=== PATIENT | female | born 1935 | race Caucasian/White ===

== ENCOUNTER → 2017-05-21 | Outpatient (CLI) | payer OTHER, MEDICARE ==
[~2017-05-21] MED LIST: ALIGN; LEVO25TA PO
--- NOTE | 2017-05-21 12:43 | DIAGNOSTIC IMAGING REPORT ---
L EXTREMITY NONVASCULAR LIMITED CLINICAL HISTORY: D17.22 Benign lipomatous neoplasm of skin or subcutaneous tissue mass. Nodule. TECHNIQUE: Ultrasound COMPARISON STUDY: None FINDINGS: At the site of clinically palpable nodularity is a complex primarily cystic nodule measuring 3.4 x 4.2 x 3.5 cm. This primarily cystic with scattered dependent debris. There is a second immediately adjacent structure of similar characteristics measuring 3.4 x 2.0 cm. These are immediately adjacent to separate complex regions versus a single lobular nodule measuring 6 x 5 x 3.5 cm. No evidence for vascular flow. No evidence for pseudoaneurysm. IMPRESSION: Palpable nodular density appears to be a primarily cystic lobular lesion containing a moderate amount of dependent debris. This has a maximum overall dimension of 6 x 5 x 3.5 cm. Diagnostic possibility includes seroma versus old hematoma, . No evidence for pseudoaneurysm. The above report was generated using voice recognition software. It may contain grammatical, syntax or spelling errors. Electronically signed by: Alex Bernal M.D. 05/21/2017 12:41 PM Dictated Date/Time: 05/21/2017 12:38 PM
== END | disposition home or self-care (01) ==
LOC: C.ULTR 12:01
PROVIDERS: ATTEND Physician Assistant
DX: D17.22 Benign lipomatous neoplasm of skin and subcutaneous tissue of left arm (principal)

== ENCOUNTER 2017-06-06 13:09 | Emergency (ER) | payer OTHER, MEDICARE ==
[~2017-06-06] VITALS: Ht 160 cm; Wt 53.9 kg
[2017-06-06 13:25] VITALS: TEMP 36.6; Ht 160 cm; Wt 53.9 kg
[2017-06-06] MEDS ORDERED: LIDOCAINE/EPINEPHRINE 1% 20 ML VIAL INFIL ONE (14:15)
[2017-06-06] MEDS ORDERED: DIPHTHERIA/TETANUS/PERTUSSIS 0.5 ML SYR/VIAL IM. ONE (14:15)
--- NOTE | 2017-06-06 14:16 | EMERGENCY ROOM VISIT NOTE ---
History Report prepared by Donna: Mary Juares Under the Supervision of: Dr. Sammy Delcid M.D. First contact with patient: 13:29 Chief Complaint: FALL Stated Complaint: FALL - LACERATION History of Present Illness The patient is an 81 year old white female with a past medical history of hypothyroidism who presents to the ED with a cc of a sudden fall occurring an hour prior to arrival. Negative neck pain. She currently rates her discomfort as a 5/10 in severity. The patient states that she was walking up an incline ramp when she fell at home injuring her chin. She notes that she hit her chin on the pavement. The patient states that she chipped her right upper tooth. She reports left hand and wrist pain. The patient states that she is unsure of her tetanus status. She denies being on any blood thinners. Source of History: patient Onset: an hour prior to arrival Position: other (global) Symptom Intensity: 5/10 Quality: other (fall) Timing: other (sudden) Associated Symptoms: No neck pain Note: Associated Symptoms: left hand and wrist pain Review of Systems See HPI for pertinent positives and negatives. A total of ten systems were reviewed and were otherwise negative. Past Medical & Surgical Medical Problems: (1) Hypothyroidism Family History Noncontributory secondary to age Social History Smoking Status: Never Smoker Alcohol Use: occasionally Marital Status: Housing Status: lives with family Current/Historical Medications Scheduled Levothyroxine Sodium (Synthroid), 25 MCG PO DAILY Allergies Coded Allergies: Iodine (Unverified Allergy, Mild, ALLERGY TO IV CONTRAST IODINE, 04/20/13) Amoxicillin (Verified Allergy, Unknown, UNKNOWN, 05/18/17) Ciprofloxacin (Verified Allergy, Unknown, UNKNOWN, 05/18/17) Physical Exam Vital Signs Date Time Temp Pulse Resp B/P (MAP) Pulse Ox O2 Delivery O2 Flow Rate FiO2 06/06/17 16:40 76 16 106/63 98 06/06/17 14:57 74 18 132/65 97 Room Air 06/06/17 14:56 97 Room Air 06/06/17 13:25 36.6 74 18 129/94 99 Room Air Physical Exam GENERAL: Awake, alert, well-appearing, NAD HENT: Normocephalic. 1 cm laceration to the left chin. EYES: Normal conjunctiva. Sclera non-icteric. NECK: Supple. No nuchal rigidity. FROM. No midline c-spine tenderness RESPIRATORY: CTAB, no rhonchi, wheezing, crackles CARDIAC: RRR, no MRG ABDOMEN: Soft, NTND, BS+ BACK: No tenderness to palpation. MSK: No chest wall TTP, no LE edema, left 5th metacarpal tenderness to palpation , left medial ankle pain without ecchymosis, NVI to SP/DP nerves, MVI to MUR nerves. NEURO: GCS 15, CN 2-12 intact, moves all 4s on command SKIN: No rash or jaundice noted. Medical Decision & Procedures ER Provider Diagnostic Interpretation: Radiology results as stated below per my review and radiologist interpretation: MAXILLOFACIAL CT WITHOUT CONTRAST CLINICAL HISTORY: EVALUATE FOR TRAUMA/INJURY. COMPARISON STUDY: None. TECHNIQUE: A maxillofacial CT was performed without IV contrast. Coronal and sagittal reformats were viewed. A dose lowering technique was utilized adhering to the principles of ALARA. FINDINGS: There is no acute facial fracture. The globes are intact. There is no retrobulbar hematoma. Alignment of the temporomandibular joints is anatomic. The cervical spine CT will be reported separately. IMPRESSION: No acute facial fracture. Electronically signed by: Alonso Rangel M.D. 06/06/2017 3:48 PM Dictated Date/Time: 06/06/2017 3:[address] OF THE HEAD WITHOUT CONTRAST CLINICAL HISTORY: EVALUATE FOR TRAUMA/INJURY COMPARISON STUDY: Head CT April 20, 2013. CT DOSE: 1603.12 mGycm TECHNIQUE: Helical axial images of the head were obtained without IV contrast. Automated exposure control was utilized for the study. A dose lowering technique was utilized adhering to the principles of ALARA. FINDINGS: No acute intracranial hemorrhage, midline shift or mass effect is present. Ventricular system is stable. Basilar cisterns are patent. There are no extra-axial collections. White matter hypodensity suggests small vessel disease. There are no calvarial fractures. IMPRESSION: 1. No acute intracranial findings. 2. No calvarial fracture. Electronically signed by: Alonso Rangel M.D. 06/06/2017 3:45 PM Dictated Date/Time: 06/06/2017 3:43 PM L HAND MIN 3 VIEWS ROUTINE CLINICAL HISTORY: Left hand pain following fall. COMPARISON: None FINDINGS: A ring is present on the fourth finger. There are postsurgical findings consistent with fusion of the left first metacarpophalangeal joint. The trapezium may have been resected. There is no acute fracture. There is marked joint space narrowing and osteophytosis of the interphalangeal joint of the left thumb with apparent subluxation. This is likely chronic. IMPRESSION: 1. No acute fracture or dislocation of the left hand. 2. Marked joint space narrowing with sclerosis of the interphalangeal joint of the left thumb with apparent mild subluxation which is likely chronic. The findings suggest severe osteoarthritis. 3. Pronounced flexion of multiple left metacarpophalangeal joints which is likely chronic or positional. Electronically signed by: Alonso Rangel M.D. 06/06/2017 2:56 PM Dictated Date/Time: 06/06/2017 2:54 PM CHEST ONE VIEW PORTABLE CLINICAL HISTORY: Fall. COMPARISON STUDY: Chest radiograph April 13, 2009. FINDINGS: There is no pneumothorax or pleural effusion. Lungs are clear. Pulmonary vascularity is normal. Cardiomediastinal silhouette is normal. Osteoarthritis of both glenohumeral joints is incidentally noted. IMPRESSION: No acute cardiopulmonary findings. Electronically signed by: Alonso Rangel M.D. 06/06/2017 2:54 PM Dictated Date/Time: 06/06/2017 2:[address] OF THE CERVICAL SPINE WITHOUT CONTRAST CLINICAL HISTORY: EVALUATE FOR TRAUMA/INJURY. COMPARISON STUDY: Cervical spine CT April 20, 2013. TECHNIQUE: Helical axial images of the cervical spine were obtained without IV contrast. Sagittal and coronal reconstructions were viewed. A dose lowering technique was utilized adhering to the principles of ALARA. FINDINGS: Alignment of the cervical spine is anatomic. Craniocervical junction is intact. There is no acute cervical spine fracture or subluxation. Moderate multilevel degenerative disc disease and facet arthrosis is present. There is no prevertebral edema. A lucent lesion within the left aspect of T1 is unchanged since prior CT. This is benign and likely reflects a hemangioma. IMPRESSION: No acute cervical spine fracture or subluxation. Electronically signed by: Alonso Rangel M.D. 06/06/2017 3:51 PM Dictated Date/Time: 06/06/2017 3:49 PM L ANKLE MIN 3 VIEWS ROUTINE CLINICAL HISTORY: Left ankle pain following fall. COMPARISON: None FINDINGS: Alignment of left ankle is anatomic. Talar dome is intact. Osteopenia is noted as well as suspected subtalar joint fusion. There is moderate arthritis within the left midfoot. There is no acute fracture. There is mild posterior and plantar calcaneal spurring. IMPRESSION: 1. No acute fracture or dislocation of the left ankle. 2. 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 3. Status post subtalar joint fusion. Electronically signed by: Alonso Rangel M.D. 06/06/2017 2:52 PM Dictated Date/Time: 06/06/2017 2:51 PM Laboratory Results 06/06/17 14:30 Red Blood Count 4.08, Mean Corpuscular Volume 89.2, Mean Corpuscular Hemoglobin 30.4, Mean Corpuscular Hemoglobin Concent 34.1, Mean Platelet Volume 9.3, Neutrophils (%) (Auto) 61.6, Lymphocytes (%) (Auto) 25.8, Monocytes (%) (Auto) 10.3, Eosinophils (%) (Auto) 1.2, Basophils (%) (Auto) 1.0, Neutrophils # (Auto ) 4.22, Lymphocytes # (Auto) 1.77, Monocytes # (Auto) 0.71, Eosinophils # (Auto ) 0.08, Basophils # (Auto) 0.07 06/06/17 14:30 Test 06/06/17 14:30 White Blood Count 6.86 K/uL (4.8-10.8) Red Blood Count 4.08 M/uL (4.2-5.4) Hemoglobin 12.4 g/dL (12.0-16.0) Hematocrit 36.4 % (37-47) Mean Corpuscular Volume 89.2 fL (80-100) Mean Corpuscular Hemoglobin 30.4 pg (25-34) Mean Corpuscular Hemoglobin Concent 34.1 g/dl (32-36) Platelet Count 306 K/uL (130-400) Mean Platelet Volume 9.3 fL (7.4-10.4) Neutrophils (%) (Auto) 61.6 % Lymphocytes (%) (Auto) 25.8 % Monocytes (%) (Auto) 10.3 % Eosinophils (%) (Auto) 1.2 % Basophils (%) (Auto) 1.0 % Neutrophils # (Auto) 4.22 K/uL (1.4-6.5) Lymphocytes # (Auto) 1.77 K/uL (1.2-3.4) Monocytes # (Auto) 0.71 K/uL (0.11-0.59) Eosinophils # (Auto) 0.08 K/uL (0-0.5) Basophils # (Auto) 0.07 K/uL (0-0.2) RDW Standard Deviation 49.7 fL (36.4-46.3) RDW Coefficient of Variation 15.3 % (11.5-14.5) Immature Granulocyte % (Auto) 0.1 % Immature Granulocyte # (Auto) 0.01 K/uL (0.00-0.02) Prothrombin Time 10.8 SECONDS (9.0-12.0) Prothromb Time International Ratio 1.0 (0.9-1.1) Activated Partial Thromboplast Time 25.4 SECONDS (21.0-31.0) Partial Thromboplastin Ratio 1.0 Anion Gap 14.0 mmol/L (3-11) Est Creatinine Clear Calc Drug Dose 45.2 ml/min Estimated GFR () 81.5 Estimated GFR (Non- 70.3 BUN/Creatinine Ratio 27.3 (10-20) Calcium Level 8.6 mg/dl (8.5-10.1) Troponin I < 0.015 ng/ml (0-0.045) Laboratory results reviewed by me Medications Administered Medications (Trade) Dose Ordered Sig/Pat Route Start Time Stop Time Status Last Admin Dose Admin Lidocaine/ Epinephrine (Xylocaine/Epine 1% Inj) 20 ml NOW ONCE INFIL 06/06/17 14:15 06/06/17 14:16 DC 06/06/17 14:15 20 ML Diphtheria/ Pertussis/Tetanus Vacc (Adacel Inj) 0.5 ml ONCE ONCE IM. 06/06/17 14:15 06/06/17 14:16 DC 06/06/17 14:52 0.5 ML Fentanyl Citrate (Fentanyl Inj) 25 mcg NOW ONCE IV 06/06/17 14:45 06/06/17 14:46 DC 06/06/17 14:50 25 MCG Acetaminophen (Tylenol Tab) 650 mg NOW STAT PO 06/06/17 14:42 06/06/17 14:43 DC 06/06/17 14:51 650 MG Magnesium Oxide (Mag-Ox Tab) 800 mg ONE STAT PO 06/06/17 15:23 06/06/17 15:24 DC 06/06/17 15:32 800 MG Potassium Chloride (Klor-Con M10) 40 meq STK-MED ONCE .ROUTE 06/06/17 15:30 06/06/17 15:31 DC 06/06/17 15:32 40 MEQ Procedure Location: left chin Total length: 1 cm Complexity: simple Verbal consent was obtained after the risks and benefits were explained, including but not limited to bleeding, scarring, infection, pain, and bone/joint /nerve damage. At this time, the risks of the procedure are less than the risks of NOT performing the procedure. A time out was taken and the correct patient and site identified. The skin was prepped with betadine. The target area was anesthetized with 2 ml of 1% lidocaine without epinephrine. Copious irrigation was performed using normal saline. The skin was re-prepped with betadine and a sterile field set. The wound was explored for foreign bodies and none found. Examination revealed no injury to deep structures such as tendons, bone, or significant blood vessels. Debridement was not performed. The wound edges were approximated using 3, 5-0 simple interrupted nylon sutures. Hemostasis and excellent approximation was achieved. Antibacterial ointment and a sterile dressing applied. Detailed wound care instructions and signs and symptoms of infection reviewed with the patient. No complications and the patient tolerated the procedure well. ED Course 1345: The patient was evaluated in room C11B. A complete history and physical exam was performed. 1547: I reevaluated the patient and she is feeling okay. We are awaiting CT results. 1621: I performed the laceration repair at this time. See procedure note for further detail. I discussed all the exam findings with her and I discussed the treatment plan. She verbalized complete understanding and agreement. She is ready to go home. Medical Decision Differential diagnosis: Etiologies such as fracture, dislocation, intra-abdominal, pneumothorax, intrathoracic , intracranial, neurologic, as well as other traumatic pathologies were entertained. The patient is an 81 year old white female with a past medical history of hypothyroidism who presents to the ED with a cc of a sudden fall occurring an hour prior to arrival. Patient was seen and evaluated the bedside. Patient is an 81-year-old with a history of thyroidism who presents status post mechanical fall. Patient was going down a slight grade with a difference of height in the pavement and which point she fell face forward and struck her chin on the pavement. Patient denies any focal numbness tingling or weakness. She does have a little bit of pain were a small chin leg is noted. Patient does not complain of any neck pain or headache. Patient is in some mild pain in the left hand as well as left ankle. Patient did have some blood work that was completed along with plain films and CTs. Patient's plain films were negative acute for any sort of acute fracture or dislocation. Patient did have some likely chronic subluxation. Patient's blood work did show that she had some hypokalemia. Patient was repleted with magnesium oxide and potassium chloride. Patient CTs showed no acute fracture or dislocation. Patient's laceration was repaired and the patient tolerated the procedure well. She received tdap. I did discuss return precautions as well as wound care instructions with the patient and family. Suture were to be removed in 7-10 days. They were amenable to the plan of care. All cautions were answered. Patient was deemed suitable for outpatient follow-up and treatment. Patient was given strict follow-up, discharge, and return precautions. All questions were answered. Patient was deemed suitable for outpatient follow-up at this time. Patient agreed with the plan of care and was safely discharged home. Medication Reconcilliation Current Medication List: was personally reviewed by me Blood Pressure Screening Patient's blood pressure: Normal blood pressure Blood pressure disposition: Did not require urgent referral Impression Primary Impression: Fall Additional Impressions: Hypokalemia Chin laceration Hand pain, left Ankle pain, left Scribe Attestation The scribe's documentation has been prepared under my direction and personally reviewed by me in its entirety. I confirm that the note above accurately reflects all work, treatment, procedures, and medical decision making performed by me. Departure Information Dispostion Home / Self-Care Referrals Duc Burton M.D. (PCP) Forms HOME CARE DOCUMENTATION FORM, IMPORTANT VISIT INFORMATION Patient Instructions ED Laceration All, ED Wound Care, Hypokalemia Cole, Elisabeth [facility] Additional Instructions Please return to the emergency department if you have worsening or recurrent symptoms not amenable to at-home treatment. Please call for a follow-up appointment with her primary care physician. Please take your medications as prescribed. If you have other concerns and/or complaints please feel free to also call your primary care physician's office or return the ED for further evaluation, management, and treatment. You may take 200 mg Ibuprofen every 6 hours as needed for pain with food for no more than 2 consecutive days. You may take tylenol 650 mg every 6 hours as needed for pain. You may take motrin and tylenol separately or at the same time. Take your medications as prescribed. Consider applying ice packs to face, using Motrin and Tylenol, and a soft diet. Also apply small amount of antibiotic ointment to wound. Apply a bandage covering overtop. This daily. Gentle soap and water is appropriate washing the area however no soaks in a swimming. If the area develops a lot of redness, swelling or foul smelling or yellowish or greenish drainage return to the emergency department or with her primary care physician. You have been examined and treated today on an emergency basis only. This is not a substitute for, or an effort to provide, complete comprehensive medical care. It is impossible to recognize and treat all injuries or illnesses in a single emergency department visit. It is therefore important that you follow up closely with [facility], your PCP, and/or your specialist(s). Call as soon as possible for an appointment. Thank you for your time and consideration. I look forward to speaking with you again soon. Please don't hesitate to call us if you have any questions. Problem Qualifiers Primary Impression: Fall Encounter type: initial encounter Qualified Codes: W19.XXXA - Unspecified fall, initial encounter Additional Impressions: Chin laceration Encounter type: initial encounter Qualified Codes: S01.81XA - Laceration without foreign body of other part of head, initial encounter Ankle pain, left Chronicity: acute Qualified Codes: M25.572 - Pain in left ankle and joints of left foot
[2017-06-06 14:42] LABS: BASO ABS # 0.07 K/uL (0-0.2); COMPLETE YES; EOS % 1.2 %; HEMATOCRIT 36.4 % (37-47); IG% 0.1 %; LYMPH % 25.8 %; LYMPH ABS # 1.77 K/uL (1.2-3.4); MEAN CELL VOLUME 89.2 fL (80-100); MEAN CORPUSCULAR HEMOGLOBIN 30.4 pg (25-34); MEAN CORPUSCULAR HGB CONC 34.1 g/dl (32-36); MEAN PLATELET VOLUME 9.3 fL (7.4-10.4); MONO % 10.3 %; NEUT % 61.6 %; PLATELET COUNT 306 K/uL (130-400); RED BLOOD COUNT 4.08 M/uL (4.2-5.4); WHITE BLOOD COUNT 6.86 K/uL (4.8-10.8)
[2017-06-06] MEDS ORDERED: ACETAMINOPHEN 325 MG TAB PO STA (14:42)
[2017-06-06] MEDS ORDERED: FENTANYL CITRATE INJ 50 MCG/1 ML 2 ML VIAL IV ONE (14:45)
[2017-06-06 14:50] LABS: PROTHROMBIN TIME (PATIENT) 10.8 SECONDS (9.0-12.0)
--- NOTE | 2017-06-06 14:54 | DIAGNOSTIC IMAGING REPORT ---
L ANKLE MIN 3 VIEWS ROUTINE CLINICAL HISTORY: Left ankle pain following fall. COMPARISON: None FINDINGS: Alignment of left ankle is anatomic. Talar dome is intact. Osteopenia is noted as well as suspected subtalar joint fusion. There is moderate arthritis within the left midfoot. There is no acute fracture. There is mild posterior and plantar calcaneal spurring. IMPRESSION: 1. No acute fracture or dislocation of the left ankle. 2. 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 3. Status post subtalar joint fusion. Electronically signed by: Alonso Rangel M.D. 06/06/2017 2:52 PM Dictated Date/Time: 06/06/2017 2:51 PM
--- NOTE | 2017-06-06 14:55 | DIAGNOSTIC IMAGING REPORT ---
CHEST ONE VIEW PORTABLE CLINICAL HISTORY: Fall. COMPARISON STUDY: Chest radiograph April 13, 2009. FINDINGS: There is no pneumothorax or pleural effusion. Lungs are clear. Pulmonary vascularity is normal. Cardiomediastinal silhouette is normal. Osteoarthritis of both glenohumeral joints is incidentally noted. IMPRESSION: No acute cardiopulmonary findings. Electronically signed by: Alonso Rangel M.D. 06/06/2017 2:54 PM Dictated Date/Time: 06/06/2017 2:53 PM
[2017-06-06 14:56] VITALS: O2SAT 97
[2017-06-06 14:58] LABS: BLOOD UREA NITROGEN 21 mg/dl (7-18); BUN/CREATININE RATIO 27.3 (10-20); CALCIUM 8.6 mg/dl (8.5-10.1); CARBON DIOXIDE 22 mmol/L (21-32); CHLORIDE 105 mmol/L (98-107); CREATININE 0.78 mg/dl (0.60-1.20); GLUCOSE 82 mg/dl (70-99); POTASSIUM 2.8 mmol/L (3.5-5.1); SODIUM 141 mmol/L (136-145)
--- NOTE | 2017-06-06 14:58 | DIAGNOSTIC IMAGING REPORT ---
L HAND MIN 3 VIEWS ROUTINE CLINICAL HISTORY: Left hand pain following fall. COMPARISON: None FINDINGS: A ring is present on the fourth finger. There are postsurgical findings consistent with fusion of the left first metacarpophalangeal joint. The trapezium may have been resected. There is no acute fracture. There is marked joint space narrowing and osteophytosis of the interphalangeal joint of the left thumb with apparent subluxation. This is likely chronic. IMPRESSION: 1. No acute fracture or dislocation of the left hand. 2. Marked joint space narrowing with sclerosis of the interphalangeal joint of the left thumb with apparent mild subluxation which is likely chronic. The findings suggest severe osteoarthritis. 3. Pronounced flexion of multiple left metacarpophalangeal joints which is likely chronic or positional. Electronically signed by: Alonso Rangel M.D. 06/06/2017 2:56 PM Dictated Date/Time: 06/06/2017 2:54 PM
[2017-06-06] MEDS ORDERED: MAGNESIUM OXIDE 400 MG TAB PO STA (15:23)
[2017-06-06] MEDS ORDERED: POTASSIUM CHLORIDE 20 MEQ TABCR PO STA (15:23)
[2017-06-06] MEDS ORDERED: POTASSIUM CHLORIDE 10 MEQ TABCR ONE (15:30)
--- NOTE | 2017-06-06 15:47 | DIAGNOSTIC IMAGING REPORT ---
CT OF THE HEAD WITHOUT CONTRAST CLINICAL HISTORY: EVALUATE FOR TRAUMA/INJURY COMPARISON STUDY: Head CT April 20, 2013. CT DOSE: 1603.12 mGycm TECHNIQUE: Helical axial images of the head were obtained without IV contrast. Automated exposure control was utilized for the study. A dose lowering technique was utilized adhering to the principles of ALARA. FINDINGS: No acute intracranial hemorrhage, midline shift or mass effect is present. Ventricular system is stable. Basilar cisterns are patent. There are no extra-axial collections. White matter hypodensity suggests small vessel disease. There are no calvarial fractures. IMPRESSION: 1. No acute intracranial findings. 2. No calvarial fracture. Electronically signed by: Alonso Rangel M.D. 06/06/2017 3:45 PM Dictated Date/Time: 06/06/2017 3:43 PM
--- NOTE | 2017-06-06 15:50 | DIAGNOSTIC IMAGING REPORT ---
MAXILLOFACIAL CT WITHOUT CONTRAST CLINICAL HISTORY: EVALUATE FOR TRAUMA/INJURY. COMPARISON STUDY: None. TECHNIQUE: A maxillofacial CT was performed without IV contrast. Coronal and sagittal reformats were viewed. A dose lowering technique was utilized adhering to the principles of ALARA. FINDINGS: There is no acute facial fracture. The globes are intact. There is no retrobulbar hematoma. Alignment of the temporomandibular joints is anatomic. The cervical spine CT will be reported separately. IMPRESSION: No acute facial fracture. Electronically signed by: Alonso Rangel M.D. 06/06/2017 3:48 PM Dictated Date/Time: 06/06/2017 3:46 PM
--- NOTE | 2017-06-06 15:52 | DIAGNOSTIC IMAGING REPORT ---
CT OF THE CERVICAL SPINE WITHOUT CONTRAST CLINICAL HISTORY: EVALUATE FOR TRAUMA/INJURY. COMPARISON STUDY: Cervical spine CT April 20, 2013. TECHNIQUE: Helical axial images of the cervical spine were obtained without IV contrast. Sagittal and coronal reconstructions were viewed. A dose lowering technique was utilized adhering to the principles of ALARA. FINDINGS: Alignment of the cervical spine is anatomic. Craniocervical junction is intact. There is no acute cervical spine fracture or subluxation. Moderate multilevel degenerative disc disease and facet arthrosis is present. There is no prevertebral edema. A lucent lesion within the left aspect of T1 is unchanged since prior CT. This is benign and likely reflects a hemangioma. IMPRESSION: No acute cervical spine fracture or subluxation. Electronically signed by: Alonso Rnagel M.D. 06/06/2017 3:51 PM Dictated Date/Time: 06/06/2017 3:49 PM
[2017-06-06 16:40] VITALS: BP 106/63; PULSE 76; O2SAT 98
== END 2017-06-06 16:41 | disposition home or self-care (01) ==
LOC: EDBD 13:09 → C.EDC 13:10
DX: S01.81XA Laceration without foreign body of other part of head, initial encounter (principal); W10.2XXA Fall (on)(from) incline, initial encounter; Y92.009 Unspecified place in unspecified non-institutional (private) residence as the place of occurrence of the external cause; M79.642 Pain in left hand; M25.572 Pain in left ankle and joints of left foot; E87.6 Hypokalemia; S02.5XXA Fracture of tooth (traumatic), initial encounter for closed fracture; E03.9 Hypothyroidism, unspecified; R40.2412 Glasgow coma scale score 13-15, at arrival to emergency department

== ENCOUNTER → 2017-11-13 | Outpatient (CLI) | payer OTHER, MEDICARE ==
[~2017-11-13] MED LIST changes: -ALIGN
--- NOTE | 2017-11-13 12:46 | DIAGNOSTIC IMAGING REPORT ---
MRI OF THE LEFT ELBOW WITHOUT CONTRAST CLINICAL HISTORY: Left elbow painful mass and swelling. No recent trauma. COMPARISON STUDY: Left upper extremity ultrasound May 21, 2017. TECHNIQUE: Utilizing a 1.5 Sarika magnet and dedicated coil, multiplanar, multiecho imaging of the left elbow was performed without intravenous or intra-articular contrast. FINDINGS: Alignment of left elbow is anatomic. Note is made of a very large complex left elbow joint effusion which contains extensive joint bodies with suspected synovial proliferation. This corresponds to the large collection shown on exam of May 21, 2017. A marker was placed on the skin at site of palpable abnormality overlying the posterior aspect of the left elbow. There is a corresponding 2.4 x 1.4 cm multiloculated cystic abnormality which could reflect a ganglion cyst or extension of the joint space. The complex joint effusion extends into the flexor and extensors. These are likely partially torn. There is a tear of the ulnar collateral ligament which is chronic. Radiocapitellar articulation is preserved. There is severe arthritis with chondrosis and bone loss involving the ulnotrochlear articulation. This is chronic. There is no evidence for osteomyelitis. There is no suspicious marrow replacement. No solid masses are identified on this unenhanced exam. Distal triceps is intact. The distal biceps and brachialis are intact. IMPRESSION: 1. Very large complex left elbow joint effusion which contains innumerable joint bodies with synovial proliferation. Lipoma arborescens is within the differential but considered less likely. 2. Severe osteoarthritis of the ulnotrochlear articulation. 3. No evidence for osteomyelitis. 4. No solid mass identified. 2.4 x 1.4 cm multiloculated cystic abnormality along the posteromedial aspect the left elbow likely reflects the palpable abnormality. This could reflect a ganglion cyst or extension of joint fluid. Electronically signed by: Alonso Rangel M.D. 11/13/2017 12:45 PM Dictated Date/Time: 11/13/2017 12:31 PM
== END | disposition home or self-care (01) ==
LOC: C.MRIBC 11:25
PROVIDERS: ATTEND Orthopaedic Surgery
DX: M25.522 Pain in left elbow (principal); R22.32 Localized swelling, mass and lump, left upper limb

== ENCOUNTER 2018-02-08 10:54 | Emergency (ER) | payer OTHER, MEDICARE ==
[~2018-02-08] VITALS: Ht 162.6 cm; Wt 50.4 kg
[2018-02-08 11:08] VITALS: TEMP 36.7; Ht 162.6 cm; Wt 50.4 kg
--- NOTE | 2018-02-08 13:13 | DIAGNOSTIC IMAGING REPORT ---
ULTRASOUND BILATERAL LOWER EXTREMITY VENOUS CLINICAL HISTORY: Lower extremity edema and wound. COMPARISON STUDY: No priors. TECHNIQUE: Real-time, grayscale, and color Doppler sonography of the deep veins of the right and left lower extremity was performed from the inguinal crease to the calf. Compression and augmentation were utilized. FINDINGS: There is no sonographic evidence of deep venous thrombosis identified in the right or left lower extremity. The common femoral, superficial femoral, and popliteal veins are patent and normally compressible bilaterally. The greater saphenous vein and the profunda femoris vein at the junction with the common femoral vein are clear in both legs. The visualized calf veins are patent bilaterally. A prominent lymph node is noted in the left popliteal fossa. IMPRESSION: There is no sonographic evidence of deep venous thrombosis identified in the right or left lower extremity. Electronically signed by: Jasiel Euceda M.D. 02/08/2018 1:11 PM Dictated Date/Time: 02/08/2018 1:05 PM
--- NOTE | 2018-02-08 13:20 | EMERGENCY ROOM VISIT NOTE ---
ED Visit Note First contact with patient: 11:23 Staff note: I have reviewed the Patients chart and have discussed this case with my PA. I generally agree with the ED note and findings.
[2018-02-08] MEDS ORDERED: BACITRACIN OINT 15 GM TUBE EXT ONE (14:15)
[2018-02-08 14:21] VITALS: BP 104/58; PULSE 72; O2SAT 96
--- NOTE | 2018-02-08 17:05 | EMERGENCY ROOM VISIT NOTE ---
History First contact with patient: 11:23 Chief Complaint: SWELLING TO EXTREMITY Stated Complaint: SWOLLEN LEG AND FOOT, SORE THAT WON'T HEAL History of Present Illness The patient is a 82 year old female who presents to the Emergency Room with complaints of 2 wounds on the left lower extremity. The patient reports that she suffered a laceration to the left leg in late December. Her PCP saw her for possible infection, and give her prescription for doxycycline. The patient reports that the antibiotic because abdominal discomfort and diarrhea. She stopped the antibiotic, and was prescribed mupirocin cream. The patient reports that she has had persistent redness of the leg that has not improved or worsened. She also reports bilateral lower extremity swelling. She denies any pain. The patient denies any prior history of leg wounds. She denies history of CHF or recent chest pain, shortness of breath or abdominal pain. Review of Systems 10 system review was performed and was negative except for pertinent positives and negatives as indicated in history of present illness Past Medical/Surgical History Medical Problems: (1) Hypothyroidism Family History Unremarkable Social History Smoking Status: Never Smoker Alcohol Use: occasionally Marital Status: Housing Status: lives with family Current/Historical Medications Scheduled Levothyroxine Sodium (Synthroid), 25 MCG PO DAILY Physical Exam Vital Signs Date Time Temp Pulse Resp B/P (MAP) Pulse Ox O2 Delivery O2 Flow Rate FiO2 02/08/18 14:21 72 16 104/58 96 02/08/18 13:11 67 16 101/69 98 Room Air 02/08/18 11:08 36.7 75 18 110/73 95 Room Air Physical Exam CONSTITUTIONAL: Healthy and well nourished. Alert and oriented X 3 with positive affect. Patient does not appear in any acute distress. HEENT: Normocephalic, atraumatic. Pupils equal, round and reactive. NECK: Full active range of motion without discomfort. RESPIRATORY: Clear to auscultation bilaterally with no wheezing, crackles, rhonchi or stridor. CARDIOVASCULAR: Regular rate and rhythm with no murmurs, rubs or gallops. GASTROINTESTINAL: Bowel sounds present in all quadrants. Soft and nontender to palpation. MUSCULOSKELETAL: Examination shows bilateral lower extremity dependent edema. She has open wounds to the medial and lateral aspect of the left leg. She has overriding erythema without any significant increase in warmth to palpation. She also has skin changes of bilateral lower extremities. Pedal pulses are intact. No popliteal masses. INTEGUMENTARY: No rash or other significant dermatologic conditions noted. NEUROLOGIC: Bilateral lower extremities are sensory intact. Medical Decision & Procedures ER Provider Diagnostic Interpretation: Venous ultrasound of bilateral lower extremities is negative for deep vein thrombosis. Radiologist reports are as follows: ULTRASOUND BILATERAL LOWER EXTREMITY VENOUS CLINICAL HISTORY: Lower extremity edema and wound. COMPARISON STUDY: No priors. TECHNIQUE: Real-time, grayscale, and color Doppler sonography of the deep veins of the right and left lower extremity was performed from the inguinal crease to the calf. Compression and augmentation were utilized. FINDINGS: There is no sonographic evidence of deep venous thrombosis identified in the right or left lower extremity. The common femoral, superficial femoral, and popliteal veins are patent and normally compressible bilaterally. The greater saphenous vein and the profunda femoris vein at the junction with the common femoral vein are clear in both legs. The visualized calf veins are patent bilaterally. A prominent lymph node is noted in the left popliteal fossa. IMPRESSION: There is no sonographic evidence of deep venous thrombosis identified in the right or left lower extremity. Medications Administered Medications (Trade) Dose Ordered Sig/Pat Route Start Time Stop Time Status Last Admin Dose Admin Bacitracin (Bacitracin Oint) 1 appln NOW ONCE EXT 02/08/18 14:15 02/08/18 14:16 DC 02/08/18 14:15 1 APPLN ED Course Patient history and physical exam were performed. Nurse's notes were reviewed. Vital signs were reviewed and were normal. Venous ultrasound of bilateral lower extremities were negative for deep vein thrombosis. I did recommend consultation and further management by the [facility]. [facility] [employer] also spoke with the patient. I completed forms for this referral. The patient was advised that if she does not hear anything from their office within the next 2 business days, she should call the office for an appointment. She was encouraged to elevate the legs above the heart for swelling. She was instructed to return to the emergency department for any progressively worsening redness, swelling or pain. The wounds were cleansed and covered with bacitracin dressings. The patient was happy with plan of care, voiced understanding of all discharge instructions, and denied any pain at the time of discharge. The patient was also evaluated by Dr. Stinson, ED attending physician, who agrees with workup and plan of care. Medical Decision Patient presents to emergency department with complaint of bilateral lower extremity swelling, as well as a wounds to the left lower extremity. The patient did have a preceding laceration with possible infection, although she denies any worsening redness of the left lower extremity. I suspect venous stasis ulcers. The patient has good palpable pedal pulses, therefore I do not suspect peripheral vascular disease. I do not feel that x-rays are warranted at this time. Medication Reconcilliation Current Medication List: was personally reviewed by me Blood Pressure Screening Patient's blood pressure: Normal blood pressure Impression Primary Impression: Venous stasis ulcers Departure Information Referrals Duc Burton M.D. (PCP) Patient Instructions My [facility] Problem Qualifiers Primary Impression: Venous stasis ulcers Venous stasis ulcer site: other part of lower leg Varicose vein presence: without varicose veins Laterality: left Non-pressure ulcer stage: with fat layer exposed Qualified Codes: I87.2 - Venous insufficiency (chronic) ( peripheral); L97.822 - Non-pressure chronic ulcer of other part of left lower leg with fat layer exposed
== END 2018-02-08 14:23 | disposition home or self-care (01) ==
LOC: C.EDB 10:55 → C.EDD 14:23
DX: S81.802A Unspecified open wound, left lower leg, initial encounter (principal); X58.XXXA Exposure to other specified factors, initial encounter; R60.0 Localized edema; E03.9 Hypothyroidism, unspecified; I87.2 Venous insufficiency (chronic) (peripheral)

== ENCOUNTER 2018-07-18 16:43 | Inpatient (IN) ==
[2018-07-18] MEDS ORDERED: SODIUM CHLORIDE 0.9% 1000ML 1,000 ML IV STA (17:11)
[2018-07-18] MEDS ORDERED: MoRPHine SULFATE 2 MG/ML CARP IV STA ×2 (17:12→19:12)
[2018-07-18] MEDS ORDERED: ONDANSETRON INJ 2 MG/ML 2 ML VIAL IV STA (17:12)
[2018-07-18 17:48] LABS: Basophils # (auto) 0.06 K/uL (0-0.2); Basophils % (auto) 0.8 %; Eosinophils # (auto) 0.08 K/uL (0-0.5); Hematocrit (blood only) 37.4 % (37-47); Hemoglobin 12.7 g/dL (12.0-16.0); Immature Granulocytes # (auto) 0.01 K/uL (0.00-0.02); Immature Granulocytes % (auto) 0.1 %; Lymphocytes # (auto) 2.69 K/uL (1.2-3.4); Lymphocytes % (auto) 33.7 %; Mean Platelet Volume 9.3 fL (7.4-10.4); Monocytes # (auto) 0.73 K/uL (0.11-0.59); Monocytes % (auto) 9.1 %; Neutrophils # (auto) 4.41 K/uL (1.4-6.5); Neutrophils % (auto) 55.3 %; Platelet Count 348 K/uL (130-400); RDW Coefficient of Variation 16.5 % (11.5-14.5); RDW Standard Deviation 52.1 fL (36.4-46.3); White Blood Count 7.98 K/uL (4.8-10.8)
[2018-07-18 18:23] LABS: Alanine Aminotransferase 14 U/L (12-78); Albumin Globulin Ratio 0.8 (0.9-2); Albumin Level 3.4 gm/dl (3.4-5.0); Alkaline Phosphatase 76 U/L (45-117); Aspartate Aminotransferase 12 U/L (15-37); BUN Creatinine Ratio 19.1 (10-20); Bilirubin,Total 0.5 mg/dl (0.2-1); Blood Urea Nitrogen 19 mg/dl (7-18); Calcium 8.5 mg/dl (8.5-10.1); Carbon Dioxide 25 mmol/L (21-32); Chloride 106 mmol/L (98-107); Creatinine Clr Calc Pharmacy 33.2 ml/min; Est GFR (African American) 59.9; Est GFR (Non-African American) 51.7; Globulin 4.3 gm/dl (2.5-4.0); Glucose 88 mg/dl (70-99); Potassium 2.5 mmol/L (3.5-5.1); Sodium 140 mmol/L (136-145); Total Protein 7.7 gm/dl (6.4-8.2); Troponin I < 0.015 ng/ml (0-0.045)
--- NOTE | 2018-07-18 18:30 | CT Scan Report ---
CT SCAN OF THE ABDOMEN AND PELVIS WITHOUT IV CONTRAST CLINICAL HISTORY: Lower abdominal pain. COMPARISON STUDY: No priors. TECHNIQUE: CT scan of the abdomen and pelvis is performed from the lung bases to the proximal femora. Images are reviewed in the axial, sagittal, and coronal planes. IV contrast was not administered for this examination as per the referring clinician. A dose lowering technique was utilized adhering to the principles of ALARA. CT DOSE: 251.98 mGy.cm FINDINGS: Lung bases: The heart is top normal in size and without pericardial effusion. The lung bases are milton r. Liver: The unenhanced liver is normal in size, contour, and attenuation. There is no intrahepatic jacquie iary ductal dilatation. Scattered hepatic cysts measure up to 2.2 cm. Additional subcentimeter hypode nsities also likely represent cysts but are too small for definitive characterization. Gallbladder: Unremarkable. Spleen: Normal in size and attenuation. Pancreas: The unenhanced pancreas is moderately atrophic and grossly unremarkable. Adrenal glands: Unremarkable. Kidneys: The unenhanced kidneys are atrophic. There is a 6 mm obstructing calculus protruding from th e left vesicoureteral junction seen on image #[id number]. This causes mild to moderate left-sided hydrourete ronephrosis. An additional 2 mm nonobstructing calculus is seen in the left upper pole. No right alfonso l calculi are identified and there is no right-sided hydronephrosis. There is no evidence of contour deforming renal mass lesion. Abdominal vasculature: The abdominal aorta is normal in course and caliber noting mild to moderate at herosclerotic calcification. Bowel: There is mild to moderate colonic diverticulosis without CT evidence of acute diverticulitis. No bowel obstruction is seen. The appendix is not clearly visualized. Peritoneum: There is no intraperitoneal free air or abdominal ascites. There is a small fat-containin g umbilical hernia. Lymphadenopathy: None. Pelvic viscera: The bladder is decompressed and grossly unremarkable. The uterus is normal as visuali zed. A 4.1. Centimeters simple appearing cystic structure in the right adnexa is likely related to th e right ovary. Skeletal structures: The skeletal structures are osteopenic. Moderate lumbosacral spondylosis is obse rved. No lytic or blastic lesions are seen. Advanced arthritic change is seen in the hips, left great er than right. IMPRESSION: 1. There is a 6 mm obstructing calculus protruding from the left vesicoureteral junction. This causes mild to moderate left-sided hydroureteronephrosis. 2. There is an additional small nonobstructing left renal calculus. 3. Mild to moderate colonic diverticulosis without CT evidence of acute diverticulitis. 4. There is an indeterminant cystic structure in the right adnexa, likely related to the right ovary. Follow-up with a nonemergent pelvic ultrasound and gynecologic assessment is recommended. 5. Additional findings as above. Electronically signed by: Jasiel Euceda M.D. 07/18/2018 6:29 PM
[2018-07-18] MEDS ORDERED: POTASSIUM CHLORIDE / WTR 10 MEQ/100 ML PLCT IV ONE (18:37)
--- NOTE | 2018-07-18 18:51 | History & Physical Report ---
Date of Service July 18, 2018 Assessment & Plan (1) Kidney stone: IVF flomax Pain control Urology c/s pending (2) Hypothyroid: continue home meds (3) Hypokalemia: Replaced in the ED, monitor (4) DVT prophylaxis: SCDs given possible need for OR Pt requested I call her daughter. JEANIE that stated Melita Nguyen in message. History of Present Illness Primary Care Provider: Duc Burton MD 82 y/o F c/o abd pain. Pt states that this started yesterday and has gotten worse. She was visiting her at [place] [place] today and as she was driving by the pain was so intense that she decided to stop to be seen in the ED. Pain is lower abd/pelvis and central. No back pain. She has been nauseated but no emesis. Pt denies fever, SOB, chest pain, LE pain or swelling. Pt states that she has had ongoing diarrhea that at times she cannot control, but that this is her baseline. Allergies Allergy/AdvReac Type Severity Reaction Status Date / Time iodine Allergy Mild ALLERGY TO Verified 07/18/18 17:34 IV CONTRAST IODINE amoxicillin Allergy Unknown CAN'T Verified 07/18/18 17:34 REMEMBER celecoxib Allergy Unknown CAN'T Verified 07/18/18 17:34 REMEMBER Cipro Allergy Unknown UNKNOWN Verified 02/08/18 11:43 ciprofloxacin Allergy Unknown CAN'T Verified 07/18/18 17:34 REMEMBER hydrocodone Allergy Unknown CAN'T Verified 07/18/18 17:34 REMEMBER Iodinated Contrast- Oral and Allergy Unknown CAN'T Verified 07/18/18 17:34 IV Dye REMEMBER Sulfa (Sulfonamide Allergy Unknown CAN'T Verified 07/18/18 17:34 Antibiotics) REMEMBER Home Medications Home Medications Medication Instructions Recorded Confirmed Type levothyroxine 25 mcg tablet 37.5 mcg PO DAILY 03/12/18 07/18/18 History Past Med/Surg History Medical History Hypothyroidism (Chronic) Left leg cellulitis (Chronic) Venous stasis ulcers of both lower extremities (Chronic) Social History marital status: Current Living Situation: Alone current occupational status: retired Feels Safe at Home: Yes Smoking Status: Never smoker Hx Alcohol Use: Yes (daily small glass of port wine most days) Hx Substance Use: No Beliefs That Will Affect Care: None Preferred Language: Fijian well-balanced diet: daily or most days Review of Systems Pertinent positives and negatives reviewed in HPI--all others negative Physical Exam 2 Vital Signs (Past 24 Hours): Last Vital Signs Temp 36.4 C L 07/18/18 16:46 Pulse 70 07/18/18 18:25 Resp 20 07/18/18 18:25 BP 130/80 07/18/18 18:25 Pulse Ox 100 07/18/18 18:25 Constitutional: WD/WN, vitals as above Eyes: normal visual chang by confrontation and + anicteric sclerae Neck: normal visual inspection and trachea midline Respiratory: normal respiratory effort, lungs clear to auscultation Cardiovascular: Rate/Rhythm: regular rate and regular rhythm Gastrointestinal (Abdomen): Inspection/Auscultation: + abdomen distended Percussion/Palpation: + abdomen tender (lower abd/pelvis) and abdomen soft Musculoskeletal: Head/Neck/Chest: normocephalic and head atraumatic negative for edema, peripheral pulses intact Skin: no rashes, warm and dry Neurologic: awake; not confused Speech / Cognition: normal speech Psychiatric: A+Ox3, euthymic affect Results & Data Diagnostic Findings CT AP: L sided 6mm obstructing stone, R ovarian cyst Code Status & VTE Plan Code Status Full code VTE Prophylaxis Plan VTE Prophylaxis will be ordered: Yes
[2018-07-18 19:36] LABS: Appearance Urine Cloudy (Clear); Bacteria Urine Automated Negative (Negative); Bilirubin Urine Negative (Negative); Color Urine Yellow; Epithelial Cell Urine Auto >30 /lpf (0-5); Glucose Urine UA Negative (Negative); Ketones Urine 1+ (Negative); Leukocyte Esterase Urine 1+ (Negative); Nitrite Urine Negative (Negative); Protein Urine 1+ (Negative); Specific Gravity Urine 1.023 (1.000-1.030); Urobilinogen Urine Negative (Negative); pH Urine 5.5 (4.5-7.5)
[2018-07-18] MEDS ORDERED: TAMSULOSIN HCL 0.4 MG CAP PO ONE (19:48)
[2018-07-18] MEDS ORDERED: ACETAMINOPHEN 325 MG TAB PO PRN (19:48)
[2018-07-18] MEDS ORDERED: MAGNESIUM HYDROXIDE SUSP 30 ML UDC PO PRN (19:48)
[2018-07-18] MEDS ORDERED: ONDANSETRON INJ 2 MG/ML 2 ML VIAL IV PRN (19:48)
[2018-07-18] MEDS: MoRPHine SULFATE 2 MG/ML CARP IV SCH ×3 (19:53→23:24)
[2018-07-18 20:02] LABS: Calcium Oxalate Crystals Urine Present (None Prsent)
[2018-07-18] MEDS ORDERED: INFLUENZA VACCINE HIGH DOSE 65+ 0.5 ML SYR IM ONE (21:30)
[2018-07-18] MEDS ORDERED: INFLUENZA ADMINISTRATION CHARGE ONE (21:30)
[2018-07-18] MEDS: D5W AND 1/2NSS + 20MEQ KCL 20 MEQ/1,000 ML BAG IV SCH (21:35)
[2018-07-18] MEDS: TAMSULOSIN HCL 0.4 MG CAP PO SCH (21:36)
--- NOTE | 2018-07-18 22:13 | Emergency Department Note ---
Entered by Oscar Nielsen acting as a scribe for Martin Daniels MD ED Provider Note CHIEF COMPLAINT: Abdominal Pain HISTORY OF PRESENT ILLNESS: The patient is a 82 year-old female who complains of abdominal pain starting today. She states she felt weird last night. She notes she went to go visit her and on her drive back stopped at the ED because she thought she could not make it home. She states she was fairly normal yesterday. She states the pain is lower than her belly button on both sides. She notes she has never experienced pain like this before. She states she probably had a normal bowel movement yesterday. She states her bowel movements have been mostly like diarrhea. She notes the pain is 8/10 right now. She states she feels nauseous and has back pain. She notes she has never had any operations on her abdomen before. She mentions she has skin cancer on both of her legs. She states her PCP is Dr. Eric Burton at [facility]. Pt denies LOC, headache, fevers, chills, diaphoresis, visual changes, neck pain , chest pain, breathing difficulties, melena, hematochezia, urinary symptoms, numbness, weakness, lymphadenopathy, rash, or other complaints. REVIEW OF SYSTEMS: See HPI for pertinent positives and negatives. A total of ten systems were reviewed and were otherwise negative. PMHx/PSHx: Skin cancer, venous stasis ulcers, DVT prophylaxis Knee replacement SOCIAL HISTORY: Patient lives at home. PHYSICAL EXAM: GENERAL: Awake, alert, very uncomfortable-appearing, in moderate distress. Patient is actively dry-heaving. HENT: Normocephalic, atraumatic. Oropharynx unremarkable. EYES: Normal conjunctiva. Sclera non-icteric. NECK: Inspection normal. Non-tender. Supple. No nuchal rigidity. FROM. No masses. RESPIRATORY: Clear to auscultation. No wheezes. No rales. Normal respiratory effort. CARDIAC: Normal rate. Normal rhythm. No murmurs. No rubs. Extremities warm and well perfused. Pulses equal. No JVD. GI: Soft, non-distended. No rebound or guarding. No masses. Left sided lower abdomen tenderness. RECTAL: Deferred. MUSCULOSKELETAL: Atraumatic. Chest examination reveals no tenderness. The back is symmetrical on inspection without obvious abnormality. There is no CVA tenderness to palpation. No joint edema. LOWER EXTREMITIES: Calves are equal size bilaterally and non-tender. No discoloration. Trace 1+ edema. NEURO: Normal sensorium. No sensory or motor deficits noted. SKIN: No rash or jaundice noted. EMERGENCY DEPARTMENT COURSE: 1708: Past medical records reviewed. The patient was evaluated in room A2, and a complete history and physical examination were performed. 184: I reviewed the patient's case with Dr. Sahu- [facility] hospitalist. She will evaluate the patient for further management. 1899: I spoke with the patient and she has requested more pain medication. MEDICAL DECISION MAKING: Triage Nursing notes reviewed and agree them. The patient's history was concerning for abdominal pain. Differential diagnosis: Etiologies such as appendicitis, diverticulitis, PUD, biliary pathology, UTI, pancreatitis, obstruction, mesenteric ischemia, aortic pathology, infections, inflammatory bowel disease, renal colic, as well as others were entertained. Physical examination findings: As above. Patient was quite uncomfortable. ER treatment provided: IV Zofran IV morphine x2 IV potassium On reassessment the patient felt better. Diagnostics interpreted by me: ECG: No dysrhythmia or ischemia. The labs revealed an unremarkable CBC and chemistry panel except for significant hypo-kalemia. Lactate negative. Troponin negative. Urinalysis showed moderate blood. Epithelial cells and white cells noted. No bacteria. Imaging studies: CT scan of the abdomen pelvis was significant for left-sided ureteral stone that measured 6 mm. Consultation: A consultation was placed with the [facility] hospitalist. The case was discussed and diagnostics were reviewed. The patient was evaluated in the ER for further treatment. IMPRESSION: Hypokalemia and Kidney stone PLAN: Admitted The scribe's documentation has been prepared under my direction and personally reviewed by me in its entirety. I confirm that the note above accurately reflects all work, treatment, procedures, and medical decision making performed by me. Impression & Plan Hypokalemia, Kidney stone Past Med/Surg History Medical History Hypothyroidism (Chronic) Left leg cellulitis (Chronic) Venous stasis ulcers of both lower extremities (Chronic) Social History marital status: Current Living Situation: Alone and Spouse Current Living Situation Comment: currently at [facility] current occupational status: retired Other Information That Helps Us Care for You: No Feels Safe at Home: Yes Safety Concerns: Feels Safe At This Time Smoking Status: Never smoker Hx Alcohol Use: Yes Alcohol type: wine Alcohol Intake Frequency: 0-2 drinks per day Hx Substance Use: No Beliefs That Will Affect Care: None Preferred Language: Swazi Communication Ability: Effective Product Development Coordinator Required: No well-balanced diet: daily or most days Results & Data Vital Signs Vital Signs - 24 hr 07/18/18 16:46 07/18/18 17:36 07/18/18 18:25 Temperature 36.4 C L Temperature Source Oral Sepsis Recent Fever Within 48 Hours No Sepsis New/Unexplained Change in Mental Status No Sepsis Action Taken by Nursing No Action Required Pulse Rate 130 H 70 Pulse Rate [Apical] 70 Pulse Rate [Right Finger] Pulse Rhythm Regular Respiratory Rate 20 20 Respiratory Effort / Characteristics Non-Labored Spontaneous Respiratory Depth Normal Respiratory Pattern Regular Blood Pressure 137/90 Blood Pressure [Left Arm] 130/80 Blood Pressure Mean 105 Blood Pressure Mean [Left Arm] 96 Blood Pressure Position Sitting Pulse Oximetry 96 96 100 Oxygen Delivery Method Room Air Room Air Room Air 07/18/18 19:12 07/18/18 19:13 07/18/18 19:30 Temperature 36.4 C L Temperature Source Oral Sepsis Recent Fever Within 48 Hours Sepsis New/Unexplained Change in Mental Status Sepsis Action Taken by Nursing Pulse Rate 70 Pulse Rate [Apical] 58 L Pulse Rate [Right Finger] 115 H Pulse Rhythm Respiratory Rate 18 18 24 Respiratory Effort / Characteristics Non-Labored Spontaneous Respiratory Depth Normal Respiratory Pattern Regular Blood Pressure 140/74 Blood Pressure [Left Arm] 143/74 H 127/88 Blood Pressure Mean Blood Pressure Mean [Left Arm] 97 101 Blood Pressure Position Pulse Oximetry 100 99 100 Oxygen Delivery Method Room Air Room Air 07/18/18 19:35 07/18/18 21:54 Temperature 36.4 C L 36.9 C Temperature Source Oral Oral Sepsis Recent Fever Within 48 Hours Sepsis New/Unexplained Change in Mental Status Sepsis Action Taken by Nursing Pulse Rate Pulse Rate [Apical] 115 H Pulse Rate [Right Finger] 121 H Pulse Rhythm Respiratory Rate 24 18 Respiratory Effort / Characteristics SOB on Exertion Non-Labored Spontaneous Respiratory Depth Normal Respiratory Pattern Regular Blood Pressure Blood Pressure [Left Arm] 127/88 119/80 Blood Pressure Mean Blood Pressure Mean [Left Arm] 101 93 Blood Pressure Position Pulse Oximetry 100 93 Oxygen Delivery Method Room Air Room Air Home Medications Current Medication List: was personally reviewed by me Laboratory Data Attestation: I reviewed the patient's lab results. Result diagrams: 07/18/18 17:25 07/18/18 17:25 Lab Results 07/18/18 07/18/18 07/18/18 Range/Units 17:25 17:25 17:29 WBC 7.98 (4.8-10.8) K/uL RBC 4.30 (4.2-5.4) M/uL Hgb 12.7 (12.0-16.0) g/dL Hct 37.4 (37-47) % MCV 87.0 (80-100) fL MCH 29.5 (25-34) pg MCHC 34.0 (32-36) g/dL RDW Std Deviation 52.1 H (36.4-46.3) fL RDW Coeff of Alex 16.5 H (11.5-14.5) % Plt Count 348 (130-400) K/uL MPV 9.3 (7.4-10.4) fL Immature Gran % (Auto) 0.1 % Neut % (Auto) 55.3 % Lymph % (Auto) 33.7 % Brown % (Auto) 9.1 % Eos % (Auto) 1.0 % Baso % (Auto) 0.8 % Immature Gran # (Auto) 0.01 (0.00-0.02) K/uL Neut # (Auto) 4.41 (1.4-6.5) K/uL Lymph # (Auto) 2.69 (1.2-3.4) K/uL Brown # (Auto) 0.73 H (0.11-0.59) K/uL Eos # (Auto) 0.08 (0-0.5) K/uL Baso # (Auto) 0.06 (0-0.2) K/uL Sodium 140 (136-145) mmol/L Potassium 2.5 L* (3.5-5.1) mmol/L Chloride 106 (98-107) mmol/L Carbon Dioxide 25 (21-32) mmol/L Anion Gap 9.0 (3-11) BUN 19 H (7-18) mg/dl Creatinine 1.00 (0.6-1.2) mg/dl Est Cr Clr Drug Dosing 33.2 ml/min Est GFR ( Amer) 59.9 Est GFR (Non-Af Amer) 51.7 BUN/Creatinine Ratio 19.1 (10-20) Glucose 88 (70-99) mg/dl POC Lactic Acid Faustino 0.87 L (0.90-1.70) mmol/L Calcium 8.5 (8.5-10.1) mg/dl Total Bilirubin 0.5 (0.2-1) mg/dl AST 12 L (15-37) U/L ALT 14 (12-78) U/L Alkaline Phosphatase 76 (45-117) U/L Troponin I < 0.015 (0-0.045) ng/ml Total Protein 7.7 (6.4-8.2) gm/dl Albumin 3.4 (3.4-5.0) gm/dl Globulin 4.3 H (2.5-4.0) gm/dl Albumin/Globulin Ratio 0.8 L (0.9-2) Lipase 102 (73-393) U/L Urine Color Urine Appearance (Clear) Urine pH (4.5-7.5) Ur Specific Sol[place]ad (1.000-1.030) Urine Protein (Negative) Urine Glucose (UA) (Negative) Urine Ketones (Negative) Urine Blood (Negative) Urine Nitrite (Negative) Urine Bilirubin (Negative) Urine Urobilinogen (Negative) Ur Leukocyte Esterase (Negative) Urine WBC (Auto) (0-5) /hpf Urine RBC (Auto) (0-4) /hpf U Hyaline Cast (Auto) (0-5) /lpf U Epithel Cells (Auto) (0-5) /lpf Urine Bacteria (Auto) (Negative) Ur Renal Epithelial Cell Urine Crystals Calcium Oxalate Crystal (None Prsent) 07/18/18 Range/Units 19:00 WBC (4.8-10.8) K/uL RBC (4.2-5.4) M/uL Hgb (12.0-16.0) g/dL Hct (37-47) % MCV (80-100) fL MCH (25-34) pg MCHC (32-36) g/dL RDW Std Deviation (36.4-46.3) fL RDW Coeff of Alex (11.5-14.5) % Plt Count (130-400) K/uL MPV (7.4-10.4) fL Immature Gran % (Auto) % Neut % (Auto) % Lymph % (Auto) % Brown % (Auto) % Eos % (Auto) % Baso % (Auto) % Immature Gran # (Auto) (0.00-0.02) K/uL Neut # (Auto) (1.4-6.5) K/uL Lymph # (Auto) (1.2-3.4) K/uL Brown # (Auto) (0.11-0.59) K/uL Eos # (Auto) (0-0.5) K/uL Baso # (Auto) (0-0.2) K/uL Sodium (136-145) mmol/L Potassium (3.5-5.1) mmol/L Chloride (98-107) mmol/L Carbon Dioxide (21-32) mmol/L Anion Gap (3-11) BUN (7-18) mg/dl Creatinine (0.6-1.2) mg/dl Est Cr Clr Drug Dosing ml/min Est GFR ( Amer) Est GFR (Non-Af Amer) BUN/Creatinine Ratio (10-20) Glucose (70-99) mg/dl POC Lactic Acid Faustino (0.90-1.70) mmol/L Calcium (8.5-10.1) mg/dl Total Bilirubin (0.2-1) mg/dl AST (15-37) U/L ALT (12-78) U/L Alkaline Phosphatase (45-117) U/L Troponin I (0-0.045) ng/ml Total Protein (6.4-8.2) gm/dl Albumin (3.4-5.0) gm/dl Globulin (2.5-4.0) gm/dl Albumin/Globulin Ratio (0.9-2) Lipase (73-393) U/L Urine Color Yellow Urine Appearance Cloudy H (Clear) Urine pH 5.5 (4.5-7.5) Ur Specific Sol[place]ad 1.023 (1.000-1.030) Urine Protein 1+ H (Negative) Urine Glucose (UA) Negative (Negative) Urine Ketones 1+ H (Negative) Urine Blood 3+ H (Negative) Urine Nitrite Negative (Negative) Urine Bilirubin Negative (Negative) Urine Urobilinogen Negative (Negative) Ur Leukocyte Esterase 1+ H (Negative) Urine WBC (Auto) 10-30 H (0-5) /hpf Urine RBC (Auto) 10-30 H (0-4) /hpf U Hyaline Cast (Auto) 5-10 H (0-5) /lpf U Epithel Cells (Auto) >30 H (0-5) /lpf Urine Bacteria (Auto) Negative (Negative) Ur Renal Epithelial Cell Not Reportable Urine Crystals Not Reportable Calcium Oxalate Crystal Present H (None Prsent) Administered Medications Sodium Chloride (Nss 1000ml) 1,000 mls @ 125 mls/hr IV .Q8H STA Stop: 07/19/18 01:10 Last Admin: 07/18/18 17:31 Dose: 125 mls/hr Potassium Chloride/Dextrose/Sod Cl (D5w And 1/2nss + 20meq Kcl) 20 meq in 1, 000 mls @ 80 mls/hr IV .[id number] PATTI Stop: 08/17/18 20:59 Last Admin: 07/18/18 21:35 Dose: 80 mls/hr Morphine Sulfate (Morphine Sulfate) 1 mg IV Q2H PATTI Stop: 08/01/18 19:47 Last Admin: 07/18/18 19:53 Dose: 1 mg Tamsulosin HCl (Flomax) 0.4 mg PO HS PATTI Stop: 08/17/18 20:59 Last Admin: 07/18/18 21:36 Dose: 0.4 mg Discontinued Medications Potassium Chloride (K Pradeep / Wtr) 10 meq in 100 mls @ 100 mls/hr IV ONE ONE Stop: 07/18/18 19:36 Last Infusion: 07/18/18 21:24 Dose: 0 mls/hr Admin: 07/18/18 19:10 Dose: 100 mls/hr Influenza Virus Vaccine (Fluzone High-Dose Pf) 0.5 ml IM .ONCE ONE Stop: 07/18/18 21:31 Last Admin: 07/18/18 21:38 Dose: Not Given Morphine Sulfate (Morphine Sulfate) 2 mg IV NOW STA Stop: 07/18/18 17:13 Last Admin: 07/18/18 17:31 Dose: 2 mg Morphine Sulfate (Morphine Sulfate) 2 mg IV NOW STA Stop: 07/18/18 19:13 Last Admin: 07/18/18 19:26 Dose: 2 mg Ondansetron HCl (Zofran) 4 mg IV NOW STA Stop: 07/18/18 17:13 Last Admin: 07/18/18 17:31 Dose: 4 mg Tamsulosin HCl (Flomax) 0.4 mg PO NOW ONE Stop: 07/18/18 19:49 Last Admin: 07/18/18 21:36 Dose: 0.4 mg Imaging Data Radiologist's Impression: Radiology results as stated below per my review and the radiologist's interpretation: CT SCAN OF THE ABDOMEN AND PELVIS WITHOUT IV CONTRAST CLINICAL HISTORY: Lower abdominal pain. COMPARISON STUDY: No priors. TECHNIQUE: CT scan of the abdomen and pelvis is performed from the lung bases to the proximal femora. Images are reviewed in the axial, sagittal, and coronal planes. IV contrast was not administered for this examination as per the referring clinician. A dose lowering technique was utilized adhering to the principles of ALARA. CT DOSE: 251.98 mGy.cm FINDINGS: Lung bases: The heart is top normal in size and without pericardial effusion. The lung bases are clear. Liver: The unenhanced liver is normal in size, contour, and attenuation. There is no intrahepatic biliary ductal dilatation. Scattered hepatic cysts measure up to 2.2 cm. Additional subcentimeter hypodensities also likely represent cysts but are too small for definitive characterization. Gallbladder: Unremarkable. Spleen: Normal in size and attenuation. Pancreas: The unenhanced pancreas is moderately atrophic and grossly unremarkable. Adrenal glands: Unremarkable. Kidneys: The unenhanced kidneys are atrophic. There is a 6 mm obstructing calculus protruding from the left vesicoureteral junction seen on image #[id number]. This causes mild to moderate left-sided hydroureteronephrosis. An additional 2 mm nonobstructing calculus is seen in the left upper pole. No right renal calculi are identified and there is no right-sided hydronephrosis. There is no evidence of contour deforming renal mass lesion. Abdominal vasculature: The abdominal aorta is normal in course and caliber noting mild to moderate atherosclerotic calcification. Bowel: There is mild to moderate colonic diverticulosis without CT evidence of acute diverticulitis. No bowel obstruction is seen. The appendix is not clearly visualized. Peritoneum: There is no intraperitoneal free air or abdominal ascites. There is a small fat-containing umbilical hernia. Lymphadenopathy: None. Pelvic viscera: The bladder is decompressed and grossly unremarkable. The uterus is normal as visualized. A 4.1. Centimeters simple appearing cystic structure in the right adnexa is likely related to the right ovary. Skeletal structures: The skeletal structures are osteopenic. Moderate lumbosacral spondylosis is observed. No lytic or blastic lesions are seen. Advanced arthritic change is seen in the hips, left greater than right. IMPRESSION: 1. There is a 6 mm obstructing calculus protruding from the left vesicoureteral junction. This causes mild to moderate left-sided hydroureteronephrosis. 2. There is an additional small nonobstructing left renal calculus. 3. Mild to moderate colonic diverticulosis without CT evidence of acute diverticulitis. 4. There is an indeterminant cystic structure in the right adnexa, likely related to the right ovary. Follow-up with a nonemergent pelvic ultrasound and gynecologic assessment is recommended. 5. Additional findings as above. Electronically signed by: Jasiel Euceda M.D. 07/18/2018 6:29 PM ECG Data Attestation: I personally reviewed and interpreted this ECG as follows: Indication: abdominal pain Rate (beats per minute): 76 Rhythm: normal sinus Findings: no PAC, no PVC, no ST depression and no ST elevation Blood Pressure Blood Pressure Findings: Normal blood pressure Blood Pressure Disposition: further management by hospitalist Discharge Plan Visit Data *Final* Discharge Date/Time: 07/18/18 19:13 Chief Complaint: Abdominal Pain Stated Complaint: STOMACH PAIN ED Provider: Martin Daniels Discharge Problem: Hypokalemia, Kidney stone Patient Disposition: Admitted As Inpatient Discharge Instructions Interventions: ED Discharge Assessment Last Done: 07/18/18 19:13 The scribe's documentation has been prepared under my direction and personally reviewed by me in its entirety. I confirm that the note above accurately reflects all work, treatment, procedures, and medical decision making performed by me.
[2018-07-19] MEDS: MoRPHine SULFATE 2 MG/ML CARP IV SCH ×4 (04:13→09:47)
[2018-07-19 06:50] LABS: Calcium 7.9 mg/dl (8.5-10.1); Creatinine Clr Calc Pharmacy 23.3 ml/min; Est GFR (African American) 39.2; Est GFR (Non-African American) 33.8; Potassium 2.9 mmol/L (3.5-5.1)
--- NOTE | 2018-07-19 09:23 | Urology Consultation ---
Date of Consultation July 19, 2018 Assessment & Plan (1) Kidney stone: Distal left ureteral stone. Patient remains afebrile. Due to patient feeling well and distal stone position will defer surgical intervention today. OK to provide diet. Push PO intake, continue Flomax, IVF. Strain all urine. Will reassess tomorrow AM with repeat KUB. Patient will require emergent ureteral stent should fever develop in the interim. Thanks for the consult, will continue to follow. History of Present Illness Reason for Consultation: Left ureteral stone Attending Physician: Cody Robertson DO History of Present Illness 82YO female, 6mm distal L ureteral stone and resulting mild hydronephrosis. Patient reports worsening abdominal/L flank pain yesterday bringing her to the ER. CT abd&pelvis images reviewed: 6mm stone at L UVJ with resulting mild hydronephrosis; additional nonobstructing L Renal stone. Cr 1.42. Afebrile. UC&S pending. Patient appears comfortable and states that her pain is improved this morning. She has never seen a Urologist, this is her first stone. Denies fever/chils. Denies nausea/vomiting. Voiding spontaneously without difficulty. Allergies Allergy/AdvReac Type Severity Reaction Status Date / Time iodine Allergy Mild ALLERGY TO Verified 07/18/18 17:34 IV CONTRAST IODINE amoxicillin Allergy Unknown CAN'T Verified 07/18/18 17:34 REMEMBER celecoxib Allergy Unknown CAN'T Verified 07/18/18 17:34 REMEMBER Cipro Allergy Unknown UNKNOWN Verified 02/08/18 11:43 ciprofloxacin Allergy Unknown CAN'T Verified 07/18/18 17:34 REMEMBER hydrocodone Allergy Unknown CAN'T Verified 07/18/18 17:34 REMEMBER Iodinated Contrast- Oral and Allergy Unknown CAN'T Verified 07/18/18 17:34 IV Dye REMEMBER Sulfa (Sulfonamide Allergy Unknown CAN'T Verified 07/18/18 17:34 Antibiotics) REMEMBER Home Medications Home Medications Medication Instructions Recorded Confirmed Type levothyroxine 25 mcg tablet 37.5 mcg PO DAILY 03/12/18 07/18/18 History Patient History Medical History Hypothyroidism (Chronic) Left leg cellulitis (Chronic) Venous stasis ulcers of both lower extremities (Chronic) Social History marital status: Current Living Situation: Alone and Spouse Current Living Situation Comment: [facility] current occupational status: retired Other Information That Helps Us Care for You: No Feels Safe at Home: Yes Safety Concerns: Feels Safe At This Time Smoking Status: Never smoker Hx Alcohol Use: Yes Alcohol type: wine Alcohol Intake Frequency: 0-2 drinks per day Hx Substance Use: No Beliefs That Will Affect Care: None Preferred Language: Monegasque Communication Ability: Effective Plater Apprentice Required: No well-balanced diet: daily or most days Review of Systems Constitutional: no fever and no chills Eyes: no problem reported hard of hearing Respiratory: no dyspnea Cardiovascular: no chest pain Gastrointestinal: no abdominal pain, no nausea and no vomiting Genitourinary (Female): no difficulty urinating and no problem reported Musculoskeletal: no back pain Neurologic: no tingling and no numbness Psychiatric: no problem reported Physical Exam 2 Vital Signs (Past 24 Hours): Last Vital Signs Temp 37.0 C 07/19/18 07:48 Pulse 67 07/19/18 07:48 Resp 16 07/19/18 07:48 BP 118/64 07/19/18 07:48 Pulse Ox 99 07/19/18 07:48 Constitutional: WD/WN, vitals as above Neck: normal visual inspection Respiratory: normal respiratory effort; does not use accessory muscles Cardiovascular: Vessels: no JVD Gastrointestinal (Abdomen): Inspection/Auscultation: abdomen normal to inspection; abdomen not distended Skin: no rashes, warm and dry Psychiatric: A+Ox3, euthymic affect Genitourinary: Speculum/Bimanual Exam: bladder normal to palpation
[2018-07-19] MEDS: D5W AND 1/2NSS + 20MEQ KCL 20 MEQ/1,000 ML BAG IV SCH ×2 (09:34→21:52)
[2018-07-19] MEDS: POTASSIUM CHLORIDE 20 MEQ TABCR PO SCH ×3 (09:48→20:29)
[2018-07-19] MEDS ORDERED: MoRPHine SULFATE 2 MG/ML CARP IV PRN (11:01)
[2018-07-19] MEDS: LEVOTHYROXINE SODIUM 75 MCG TABLET PO SCH (11:05)
--- NOTE | 2018-07-19 15:10 | Hospitalist Progress Note ---
Date of Service July 19, 2018 Assessment & Plan (1) Kidney stone: no pain today, perhaps stone passed into bladder? will check KUB in the AM to assess stone location NPO after midnight tonight in case stent required IV fluids, push PO fluids (2) Hypothyroid: continue synthroid (3) Hypokalemia: still low, will add KCl 20mEq TID today repeat tomorrow AM (4) DVT prophylaxis: SCDs given possible need for OR Subjective patient says she has no pain at all, perhaps stone had passed she is hungry, per urology no cystoscopy today so she can eat no history of kidney stones reviewed labs discussed with urology, appreciate their assistance Review of Systems All systems reviewed & are unremarkable except as noted in HPI & below Physical Exam 2 Vital Signs (Past 24 Hours): Last Vital Signs Temp 36.5 C 07/19/18 15:06 Pulse 76 07/19/18 15:06 Resp 17 07/19/18 15:06 BP 95/60 L 07/19/18 15:06 Pulse Ox 100 07/19/18 15:06 Constitutional: WD/WN, vitals as above Eyes: PERRL, conjunctivae normal, anicteric sclerae ENMT: external ear and nose normal, oropharynx normal Neck: trachea midline, no thyromegaly Respiratory: normal respiratory effort, lungs clear to auscultation Cardiovascular: RRR, no murmur, no edema Gastrointestinal (Abdomen): normal bowel sounds, soft, nontender, no hepatosplenomegaly Musculoskeletal: no cyanosis or clubbing, extremities motor strength 5/5 Skin: no rashes, warm and dry Neurologic: patellar DTR's 2+ bilat, sensation intact and PERRL, EOMI, accommodation nl, no face palsy, no dysarthria Psychiatric: A+Ox3, euthymic affect Lymphatic: no cervical or axillary lymphadenopathy Results & Data Laboratory Results Laboratory Results - last 24 hr 07/18/18 07/18/18 07/18/18 17:25 17:25 17:29 WBC 7.98 RBC 4.30 Hgb 12.7 Hct 37.4 MCV 87.0 MCH 29.5 MCHC 34.0 RDW Std Deviation 52.1 H RDW Coeff of Alex 16.5 H Plt Count 348 MPV 9.3 Immature Gran % (Auto) 0.1 Neut % (Auto) 55.3 Lymph % (Auto) 33.7 [place] % (Auto) 9.1 Eos % (Auto) 1.0 Baso % (Auto) 0.8 Immature Gran # (Auto) 0.01 Neut # (Auto) 4.41 Lymph # (Auto) 2.69 [place] # (Auto) 0.73 H Eos # (Auto) 0.08 Baso # (Auto) 0.06 Sodium 140 Potassium 2.5 L* Chloride 106 Carbon Dioxide 25 Anion Gap 9.0 BUN 19 H Creatinine 1.00 Est Cr Clr Drug Dosing 33.2 Est GFR ( Amer) 59.9 Est GFR (Non-Af Amer) 51.7 BUN/Creatinine Ratio 19.1 Glucose 88 POC Lactic Acid Faustino 0.87 L Calcium 8.5 Total Bilirubin 0.5 AST 12 L ALT 14 Alkaline Phosphatase 76 Troponin I < 0.015 Total Protein 7.7 Albumin 3.4 Globulin 4.3 H Albumin/Globulin Ratio 0.8 L Lipase 102 Urine Color Urine Appearance Urine pH Ur Specific [place] Urine Protein Urine Glucose (UA) Urine Ketones Urine Blood Urine Nitrite Urine Bilirubin Urine Urobilinogen Ur Leukocyte Esterase Urine WBC (Auto) Urine RBC (Auto) U Hyaline Cast (Auto) U Epithel Cells (Auto) Urine Bacteria (Auto) Ur Renal Epithelial Cell Urine Crystals Calcium Oxalate Crystal 07/18/18 07/19/18 19:00 05:49 WBC RBC Hgb Hct MCV MCH MCHC RDW Std Deviation RDW Coeff of Alex Plt Count MPV Immature Gran % (Auto) Neut % (Auto) Lymph % (Auto) [place] % (Auto) Eos % (Auto) Baso % (Auto) Immature Gran # (Auto) Neut # (Auto) Lymph # (Auto) [place] # (Auto) Eos # (Auto) Baso # (Auto) Sodium 140 Potassium 2.9 L D Chloride 108 H Carbon Dioxide 23 Anion Gap 9.0 BUN 18 Creatinine 1.42 H D Est Cr Clr Drug Dosing 23.3 Est GFR ( Amer) 39.2 Est GFR (Non-Af Amer) 33.8 BUN/Creatinine Ratio 13.0 Glucose 110 H POC Lactic Acid Faustino Calcium 7.9 L Total Bilirubin AST ALT Alkaline Phosphatase Troponin I Total Protein Albumin Globulin Albumin/Globulin Ratio Lipase Urine Color Yellow Urine Appearance Cloudy H Urine pH 5.5 Ur Specific [place] 1.023 Urine Protein 1+ H Urine Glucose (UA) Negative Urine Ketones 1+ H Urine Blood 3+ H Urine Nitrite Negative Urine Bilirubin Negative Urine Urobilinogen Negative Ur Leukocyte Esterase 1+ H Urine WBC (Auto) 10-30 H Urine RBC (Auto) 10-30 H U Hyaline Cast (Auto) 5-10 H U Epithel Cells (Auto) >30 H Urine Bacteria (Auto) Negative Ur Renal Epithelial Cell Not Reportable Urine Crystals Not Reportable Calcium Oxalate Crystal Present H Medications Administered Current Inpatient Medications Acetaminophen (Tylenol) 650 mg PO Q4H PRN PRN Reason: pain/fever Stop: 08/17/18 19:47 Potassium Chloride/Dextrose/Sod Cl (D5w And 1/2nss + 20meq Kcl) 20 meq in 1, 000 mls @ 80 mls/hr IV .[id number] [facility] Stop: 08/17/18 20:59 Last Admin: 07/19/18 09:34 Dose: 80 mls/hr Levothyroxine Sodium (Synthroid) 37.5 mcg PO DAILYBB [facility] Stop: 08/18/18 10:59 Last Admin: 07/19/18 11:05 Dose: 37.5 mcg Magnesium Hydroxide (Milk Of Magnesia) 30 ml PO Q6H PRN PRN Reason: Constipation Stop: 08/17/18 19:47 Morphine Sulfate (Morphine Sulfate) 1 mg IV Q2H PRN PRN Reason: Pain Stop: 08/01/18 19:47 Ondansetron HCl (Zofran) 4 mg IV Q6H PRN PRN Reason: Nausea Stop: 08/17/18 19:47 Potassium Chloride (Klor-Con M20) 20 meq PO TID PATTI Stop: 08/18/18 08:59 Last Admin: 07/19/18 13:58 Dose: 20 meq Tamsulosin HCl (Flomax) 0.4 mg PO HS [facility] Stop: 08/17/18 20:59 Last Admin: 07/18/18 21:36 Dose: 0.4 mg
[2018-07-19] MEDS: TAMSULOSIN HCL 0.4 MG CAP PO SCH (20:29)
[2018-07-20] MEDS: LEVOTHYROXINE SODIUM 75 MCG TABLET PO SCH (06:03)
[2018-07-20 07:44] LABS: Basophils # (auto) 0.03 K/uL (0-0.2); Basophils % (auto) 0.5 %; Eosinophils # (auto) 0.15 K/uL (0-0.5); Eosinophils % (auto) 2.4 %; Hemoglobin 10.7 g/dL (12.0-16.0); Immature Granulocytes # (auto) 0.01 K/uL (0.00-0.02); Immature Granulocytes % (auto) 0.2 %; Lymphocytes # (auto) 2.04 K/uL (1.2-3.4); Lymphocytes % (auto) 32.9 %; Mean Corpuscular Hgb Conc 33.4 g/dL (32-36); Mean Corpuscular Volume 87.4 fL (80-100); Mean Platelet Volume 9.3 fL (7.4-10.4); Monocytes # (auto) 0.73 K/uL (0.11-0.59); Monocytes % (auto) 11.8 %; Neutrophils # (auto) 3.24 K/uL (1.4-6.5); Neutrophils % (auto) 52.2 %; Platelet Count 280 K/uL (130-400); RDW Coefficient of Variation 16.3 % (11.5-14.5); RDW Standard Deviation 52.9 fL (36.4-46.3); Red Blood Count 3.66 M/uL (4.2-5.4)
--- NOTE | 2018-07-20 07:57 | XRay Report ---
XR KUB CLINICAL HISTORY: Ureteral stone nephrocalcinosis COMPARISON STUDY: CT 07/18/2017 FINDINGS: Nonobstructive bowel pattern. 4 mm calcification left soft tissue pelvis. This may be vascu lar or related to the left ureteral calculus. Significant degenerative change of the hips bilaterally . IMPRESSION: Vascular calcification versus distal 4 mm left ureteral calculus. The above report was generated using voice recognition software. It may contain grammatical, syntax or spelling errors. Electronically signed by: Alex Bernal M.D. 07/20/2018 7:55 AM
[2018-07-20 08:17] LABS: BUN Creatinine Ratio 15.1 (10-20); Creatinine Clr Calc Pharmacy 42.4 ml/min; Est GFR (African American) 80.9; Est GFR (Non-African American) 69.8; Potassium 3.3 mmol/L (3.5-5.1)
[2018-07-20] MEDS: POTASSIUM CHLORIDE 20 MEQ TABCR PO SCH (09:25)
--- NOTE | 2018-07-26 22:19 | Discharge Summary ---
Date of Service July 26, 2018 Admission HPI Per Admitting Provider 82 y/o F c/o abd pain. Pt states that this started yesterday and has gotten worse. She was visiting her at [place] today and as she was driving by the pain was so intense that she decided to stop to be seen in the ED. Pain is lower abd/pelvis and central. No back pain. She has been nauseated but no emesis. Pt denies fever, SOB, chest pain, LE pain or swelling. Pt states that she has had ongoing diarrhea that at times she cannot control, but that this is her baseline. Admission Exam Per Admitting Provider Constitutional: WD/WN, vitals as above Eyes: normal visual chang by confrontation and + anicteric sclerae Neck: normal visual inspection and trachea midline Respiratory: normal respiratory effort, lungs clear to auscultation Cardiovascular: Rate/Rhythm: regular rate and regular rhythm Gastrointestinal (Abdomen): Inspection/Auscultation: + abdomen distended Percussion/Palpation: + abdomen tender (lower abd/pelvis) and abdomen soft Musculoskeletal: Head/Neck/Chest: normocephalic and head atraumatic negative for edema, peripheral pulses intact Skin: no rashes, warm and dry Neurologic: awake; not confused Speech / Cognition: normal speech Psychiatric: A+Ox3, euthymic affect Principal Diagnosis Nephrolithiasis, symptomatic Discharge Exam Constitutional WD/WN, vitals as above Eyes PERRL, conjunctivae normal, anicteric sclerae ENMT external ear and nose normal, oropharynx normal Neck trachea midline, no thyromegaly Respiratory normal respiratory effort, lungs clear to auscultation Cardiovascular RRR, no murmur, no edema Gastrointestinal (Abdomen) normal bowel sounds, soft, nontender, no hepatosplenomegaly Musculoskeletal no cyanosis or clubbing, extremities motor strength 5/5 Skin no rashes, warm and dry Neurologic patellar DTR's 2+ bilat, sensation intact and PERRL, EOMI, accommodation nl, no face palsy, no dysarthria Psychiatric A+Ox3, euthymic affect Cognition: remote memory grossly intact and attention grossly intact; + recent memory not intact (some issues with short term memory, asks the same questions) Lymphatic no cervical or axillary lymphadenopathy Discharge Data Allergies Allergy/AdvReac Type Severity Reaction Status Date / Time iodine Allergy Mild ALLERGY TO Verified 07/18/18 17:34 IV CONTRAST IODINE amoxicillin Allergy Unknown CAN'T Verified 07/18/18 17:34 REMEMBER celecoxib Allergy Unknown CAN'T Verified 07/18/18 17:34 REMEMBER Cipro Allergy Unknown UNKNOWN Verified 02/08/18 11:43 ciprofloxacin Allergy Unknown CAN'T Verified 07/18/18 17:34 REMEMBER hydrocodone Allergy Unknown CAN'T Verified 07/18/18 17:34 REMEMBER Iodinated Contrast- Oral and Allergy Unknown CAN'T Verified 07/18/18 17:34 IV Dye REMEMBER Sulfa (Sulfonamide Allergy Unknown CAN'T Verified 07/18/18 17:34 Antibiotics) REMEMBER Consultations 07/18/18 18:37 ED Decision to Admit Stat 07/18/18 19:48 Consult Case Management - Discharge Planning Routine Consult Urology Routine Ordered Studies 07/18/18 17:11 CT abd pelvis wo con Stat Hospital Course (1) Kidney stone: no pain for two days, perhaps stone passed into bladder? KUB could not clearly identify stone, could have been atherosclerotic plaque/ shadow at that position no plans for ureteral stent patient discharged to home provided with strainer for urine, told to take stone fragments to PCP given instructions on how to prevent stones simply put, stay well hydrated with water, eat fruits and vegetables, avoid excessive amounts of sweet products (2) Hypothyroid: continue synthroid (3) Hypokalemia: nearly resolved patient says she has this issue as outpatient she refuses to take Pot Chloride tabs she will continue to try to eat a lot of bananas and other foods with potassium (4) DVT prophylaxis: SCDs Total Time Total Time Spent Total Time Spent (In Minutes): 35 minutes Total Time Includes: Examination of the Patient, Discharge Planning, Medication Reconciliation, Communication With Other Providers (urology PA) and Other ( discussed with daughter over the phone) Discharge Plan Discharge Items Patient Disposition: Home - Self-Care Reason For Visit: RENAL STONE Discharge Diagnosis: Left ureteral stone, likely passed Condition: Good Discharge Goals: Decrease discomfort and Improve disease control Activity: Resume your previous activity Non-emergency contact: Primary Care Provider Call non-emergency contact if: you have any medication questions, your symptoms worsen and you have a fever Diet: Regular Addtl Provider Instructions: Medications: - POTASSIUM CHLORIDE: daily supplement for low potassium level Kidney stone: no pain for over 48 hours, KUB does not show obvious stone in ureters you need to get rest and stay well hydrated to promote the stone passing you should drink at least 2 liters of fluid a day to promote more dilute urine instructions to try to prevent further stones... adequate oral hydration is patrick, need to drink 2 liters of fluid a day avoid excessive sweet drinks like soda, one can a day is fine try to eat a diet high in fruits and vegetables FOLLOW UP - call for appointment with Dr. Burton to be seen in one week Prescriptions: New potassium chloride 20 mEq tablet extended release 20 meq PO DAILY Qty: 30 RF: 3 Continue levothyroxine [Synthroid] 25 mcg tablet 37.5 mcg PO DAILY RF: 0 Visit Report Forms: My [employer] Portal Stand-Alone Forms: My [employer]/Other Patient Handouts: Kidney Stone Urine, Kidney Stones Risk, Kidney Stones, Kidney Stones Prevent, ED Strainer Urine Discharge Orders: Discharge Order (Routine); Ordered 07/20/18 Ordered By: Cody Robertson Admission Data Admit Date/Time: 07/18/18 18:49 Attending Provider: Cody Robertson Admit Provider: Rochelle Sahu Primary Care Provider: Duc Burton Other Providers: Rochelle Sahu ; Satnam Garvey Service: Medical Other Interventions: Discharge Summary Assessment (RN) Last Done: 07/20/18 11:00 DC Date/Time DO NOT enter until pt leaves facility: 07/20/18 12:42
== END 2018-07-20 12:42 | disposition home or self-care (01) | DRG 694 ==
LOC: ED 16:43 → 3W 18:49 → SUATTDRO 18:49 → 3W 19:13
DX: E87.6 Hypokalemia; N20.0 Calculus of kidney; E03.9 Hypothyroidism, unspecified